=== PATIENT | female | born 1995 | race Caucasian/White ===

== ENCOUNTER → 2017-10-07 19:58 | Observation (INO) ==
[2017-10-07 18:03] LABS: Amphetamine Screen,Urine Negative ng/mL (Cutoff=1000); Barbiturate Screen,Urine Negative ng/mL (Cutoff=200); Benzodiazepines Screen,Urine Negative ng/mL (Cutoff=200); Cannabinoid Screen,Urine Negative ng/mL (Cutoff = 50); Cocaine Screen,Urine Negative ng/mL (Cutoff= 300); Opiate Screen,Urine Negative ng/mL (Cutoff=300); Phencyclidine Screen,Urine Negative ng/mL (Cutoff=25)
--- NOTE | 2017-10-07 18:04 | OB/GYN Progress Note ---
Date of Encounter: 10/07/17 Time of Encounter: 18:03 - Assessment and Plan (1) 22 weeks gestation of Current Visit: Yes Status: Acute (2) Vaginal discharge during in second trimester Current Visit: Yes Status: Acute FHR via doppler - 130's Speculum exam - No blood visualized Vaginosis panel - negative Discharge home with precautions given Subjective - Subjective Principal diagnosis: vaginal bleeding Interval history: Ms. Thorne presents with c/o small amount of dark brown discharge on toilet paper after first void of the morning. She also reports mild cramping. She states she has not had any further discharge today but the cramping has continued. She reports a slight increase in clear discharge and vulvar itching. Objective - Vital Signs Vital Signs: Intake and Output 10/07/17 10/07/17 10/07/17 07:59 15:59 23:59 Other: Weight 119.2 kg Patient Weight 10/07/17 23:59 Weight 119.2 kg - Exam FHR: auscultation normal FHR comments: FHR 145 Auscultation: bilateral: normal Abdomen: Present: normal appearance, soft, gravid Uterus: Present: normal, firm
[2017-10-07 18:22] LABS: Bacteria,Urine None Seen per hpf (None-Few); Hyaline Casts,Urine None Seen per lpf (None-Few); Ketones,Urine 15 mg/dL (Negative); PH,Urine 6.5 pH Units (5.0-8.0); RBC,Urine 0-3 per hpf (0-3); Specific Gravity,Urine 1.012 (1.010-1.025); Squamous Epithelial Cell,Urine Many per lpf (None-Few); Urobilinogen,Urine Normal (Normal); WBC,Urine 0-3 per hpf (0-3)
[2017-10-07 18:23] LABS: Bilirubin,Urine Negative (Negative); Blood,Urine Negative (Negative); Clarity,Urine Cloudy (Clear); Color,Urine Yellow (Yellow); Glucose,Urine (UA) Normal (Normal); Nitrite,Urine Negative (Negative); Protein,Urine Negative (Neg-Trace)
[2017-10-07 18:24] LABS: Leukocyte Esterase,Urine Trace (Negative)
[2017-10-07 19:26] LABS: Candida DNA Not Detected (Not Detect); Gardnerella DNA Not Detected (Not Detect); Trichomonas DNA Not Detected (Not Detect)
== END | disposition home or self-care (01) ==
LOC: 1NENULAB
PROVIDERS: ADMIT Advanced Practice Midwife; ATTEND Advanced Practice Midwife

== ENCOUNTER → 2017-11-16 12:25 | Observation (INO) ==
[2017-11-16 10:53] LABS: Bilirubin,Urine Negative (Negative); Blood,Urine Negative (Negative); Clarity,Urine Cloudy (Clear); Color,Urine Yellow (Yellow); Glucose,Urine (UA) Normal (Normal); Ketones,Urine Negative (Negative); Leukocyte Esterase,Urine Trace (Negative); Nitrite,Urine Negative (Negative); PH,Urine 6.5 pH Units (5.0-8.0); Protein,Urine Negative (Neg-Trace); Specific Gravity,Urine 1.005 (1.010-1.025); Urobilinogen,Urine Normal (Normal)
[2017-11-16 10:55] LABS: Bacteria,Urine Few per hpf (None-Few); Hyaline Casts,Urine None Seen per lpf (None-Few); RBC,Urine 0-3 per hpf (0-3); Squamous Epithelial Cell,Urine Many per lpf (None-Few)
[2017-11-16 12:16] LABS: Amphetamine Screen,Urine Negative ng/mL (Cutoff=1000); Barbiturate Screen,Urine Negative ng/mL (Cutoff=200); Benzodiazepines Screen,Urine Negative ng/mL (Cutoff=200); Cannabinoid Screen,Urine Negative ng/mL (Cutoff = 50); Cocaine Screen,Urine Negative ng/mL (Cutoff= 300); Opiate Screen,Urine Negative ng/mL (Cutoff=300); Phencyclidine Screen,Urine Negative ng/mL (Cutoff=25)
--- NOTE | 2017-11-16 12:19 | OB/GYN Progress Note ---
Date of Encounter: 11/16/17 Time of Encounter: 12:17 - Assessment and Plan (1) 27 weeks gestation of Current Visit: Yes Status: Acute Follow-up with Dr. Baltazar labor precautions given Discharge home (2) Low back pain during in second trimester Current Visit: Yes Status: Acute Advised she may use heating pad for low back pain 20 minutes at a time every hour Referral for chriopractic care given Use Maternity support belt as advised Subjective - Subjective Principal diagnosis: Common aches of Interval history: Ms. Carreno is a 22-year-old female who presents with complaints of left-sided lower back pain left upper quadrant pain and vaginal pain when she is trying to walk for the past week or so. She denies contractions, leakage of fluid, vaginal bleeding and endorses positive movement. Her primary OB is Dr. Baltazar. She states she has not seen him since the middle of September. Antepartum ROS: new complaints, movement normal, other (low back pain), no loss of fluid, no vaginal bleeding, no contractions Objective - Vital Signs Vital Signs: Intake and Output 11/15/17 11/16/17 11/16/17 23:59 07:59 15:59 Other: Weight 123 kg Patient Weight 11/16/17 23:59 Weight 123 kg - Exam FHR: category 2 FHR comments: Baseline 140 Moderate variability Accelerations present 10x10 Decelerations present - variable FHR Category II Auscultation: bilateral: normal Abdomen: Present: normal appearance, soft, gravid Uterus: Present: normal, firm Comments: No CVA tenderness; no urinary symptoms. - Labs Labs: Abnormal lab results Urine Clarity Cloudy (Clear) A 11/16/17 10:41 Ur Specific [place] 1.005 (1.010-1.025) L 11/16/17 10:41 Ur Leukocyte Esterase Trace (Negative) H 11/16/17 10:41 Urine Microscopic WBC 5-15 per hpf (0-3) H 11/16/17 10:41 Ur Squamous Epith Cells Many per lpf (None-Few) H 11/16/17 10:41 Ur Culture Indicated? NO. (NO) A 11/16/17 10:41
== END | disposition home or self-care (01) ==
LOC: 1NENULAB
PROVIDERS: ADMIT Obstetrics & Gynecology; ATTEND Obstetrics & Gynecology

== ENCOUNTER 2018-02-03 04:00 | Inpatient (IN) ==
[2018-02-03] MEDS ORDERED: Naloxone 0.4 MG/ML INJ IVP PRN ×3 (04:35→10:05)
[2018-02-03] MEDS ORDERED: Ondansetron 4 MG/2 ML VIAL IVP PRN ×3 (04:35→10:05)
[2018-02-03] MEDS ORDERED: Famotidine 20 MG/2 ML VIAL IVP PRN (04:35)
[2018-02-03] MEDS ORDERED: *HR* Nalbuphine 10 MG/ML AMPUL IVP PRN (04:35)
[2018-02-03] MEDS ORDERED: Metoclopramide 10 MG/2 ML VIAL IVP PRN (04:35)
[2018-02-03] MEDS ORDERED: Oxytocin 20 units/ LR 1000 mL 20 UNIT/1,000 ML BAG IVC SCH ×2 (04:45→20:03)
[2018-02-03] MEDS ORDERED: Ringers Solution, Lactated 1,000 ML ONE ×3 (04:59→12:11)
[2018-02-03 05:29] LABS: Basophils % 0.3 %; Eosinophils # 0.2 K/mcL (0.0-0.6); Eosinophils % 1.5 %; Hematocrit 35.2 % (35.3-44.9); Hemoglobin 11.2 g/dL (11.5-15.4); Lymphocytes # 2.6 K/mcL (0.6-4.6); Lymphocytes % 18.2 %; Mean Corpuscular HGB Conc 31.8 g/dL (31.6-35.5); Mean Corpuscular Hemoglobin 25.6 pg (28.0-33.3); Mean Corpuscular Volume 80.5 fL (83.0-100.0); Mean Platelet Volume 9.5 fL (9.4-12.4); Monocytes # 0.9 K/mcL (0.0-1.3); Monocytes % 6.5 %; Neutrophils # 10.4 K/mcL (1.6-8.9); Nucleated Red Blood Cells 0.1 /100 WBC (0); Platelet Count 258 K/mcL (140-400); Red Blood Count 4.37 M/mcL (3.82-4.97); Red Cell Distribution Width 15.5 % (11.5-14.5); Segmented Neutrophils % 72.5 %
--- NOTE | 2018-02-03 07:54 | OB/GYN History & Physical ---
Date of Encounter: 02/03/18 Time of Encounter: 07:52 Assessment and Plan (1) 39 weeks gestation of Current visit: Yes Status: Acute Induction with Pitocin. (2) 35 weeks gestation of Current visit: No Status: Acute History of Present Illness Chief complaint: induction of labor HPI: Ms. Thorne is a 22 year old female who presents today for induction of labor. She is currently 39+ weeks. She is doing well. She is having no complaints of any kind today. On presentation she is 3 cm 70% effaced and -1 station. She has a due date of February 09. She has no drug allergies. She is currently on vitamins. Chronic medical conditions include asthma. Surgical history is negative. She has no history of abnormal Pap smears, STDs or pelvic infections. She has no history of abnormal breast findings. Socially she denies tobacco, alcohol, illicit drug use. Family history significant for hypercholesterolemia and diabetes. Obstetric history is significant for one term vaginal delivery. Father of baby has Dangelo-Parkinson- White syndrome. Past Med Surg Social Fam HX - Past Medical History Medical history: asthma Psychiatric history: anxiety - Past Surgical History Surgical History: other Additional surgical history: T & A - Social History Smoking Status: Never smoker Smokeless Tobacco Status: No Alcohol use: none Drug use: none - Family History Mother Adopted: No Family Member Ethnicity: Non- Living Status: Hx Family Cardiac Disorders: Yes () Hx Family Respiratory Disorders: No Hx Family Cancer: No Hx Family GI Disorders: No Hx Family Genitourinary Disorders: No Hx Family Endocrine Disorder: Yes Hx Family Musculoskeletal Disorders: No Hx Family Neuromuscular Disorders: No Hx Family Neurologic Disorders: No Hx Family HEENT Disorders: No Hx Family Autoimmune Disorders: No Hx Family Reproductive Disorders: No Hx Family Psychosocial Disorders: No Hx Family Medical Disorders: No Obstetrical History - Pregnancies : 3 Para: 1 Term: 1 Ab's: 1 Livin Medications and Allergies Nrg999/Iron Fumarate/FA/Dss [ 19 Tablet] 1 tab PO DAILY 10/07/17 [ History] 3 Allergy/AdvReac Type Severity Reaction Status Date / Time No Known Allergies Allergy Verified 11/16/17 10:28 Review of System OB All systems PM: reviewed and no additional remarkable complaints except as stated Exam - Constitutional Constitutional: well developed, well nourished, no acute distress, average body habitus - HEENT HEENT: PERRL - Neck Neck exam: full ROM - Lungs Respiratory exam: CTAB - Cardiovascular Cardiovascular exam: RRR - Abdomen Abdomen: Present: bowel sounds normal, gravid, non tender - Extremities Extremities exam: full ROM, normal inspection - Vagina Vagina: Present: normal moisture - Cervix Dilation: 3 Effacement: 50 Station: -3 Results Result Diagrams: 02/03/18 04:40 Abnormal lab results WBC 14.4 K/mcL (4.3-11.1) H 02/03/18 04:40 Hgb 11.2 g/dL (11.5-15.4) L 02/03/18 04:40 Hct 35.2 % (35.3-44.9) L 02/03/18 04:40 MCV 80.5 fL (83.0-100.0) L 02/03/18 04:40 MCH 25.6 pg (28.0-33.3) L 02/03/18 04:40 RDW 15.5 % (11.5-14.5) H 02/03/18 04:40 Neutrophils # 10.4 K/mcL (1.6-8.9) H 02/03/18 04:40 Nucleated RBCs/100 WBC 0.1 /100 WBC (0) H 02/03/18 04:40 All other labs normal. - VTE Reasons for not Prescribing Prophylaxis: Treatment not Indicated - Low risk for VTE
[2018-02-03] MEDS ORDERED: Bupivacaine-MPF 0.25% 10 ML VIAL EP ONE ×2 (08:10→10:05)
[2018-02-03] MEDS ORDERED: EPHEDrine 50 MG/ML VIAL IVP PRN ×2 (08:10→10:05)
[2018-02-03] MEDS ORDERED: *HR* FentaNYL (PF) 100 MCG/2 ML VIAL EP ONE (08:10)
--- NOTE | 2018-02-03 08:14 | Anesthesia Evaluation PreOp ---
Date of Encounter: 02/03/18 Time of Encounter: 08:12 - Past History Planned Operation: CAITIE Cardiac History: Denies any Significant Hx Pulmonary History: Asthma CRANE MANAGER History: Denies Any Significant HX Other Medical History: Denies Any Significant HX, Other (obesity) Anesthesia History: No Prior Anesthetic Complications, Past Anesthesia ( tonsillectomy) : Yes Alcohol Use: none Drug use: none Medications and Allergies Mco131/Iron Fumarate/FA/Dss [ 19 Tablet] 1 tab PO DAILY 10/07/17 [ History] 3 Allergy/AdvReac Type Severity Reaction Status Date / Time No Known Allergies Allergy Verified 11/16/17 10:28 - Meds/Allergy Pre-op Review Medications Reviewed: Yes Allergies Reviewed: Yes Beta Blockers on Current Med List: No Anesthesia Results - Labs 02/03/18 04:40 Anesthesia Exam BP 122/69 P 85 R 16 T 97.6 Height: 5'5" Weight: 111.6kg NPO (# of Hours): 12 solids Pain Scale: 3 Pain Scale Used: Numeric (1 - 10) - HEENT Pupil (Motor): Pupils equal Mallampati: II Teeth: Normal Oral Opening: Greater than 3 - CRANE MANAGER LOC: Oriented CRANE MANAGER Motor: Normal RUE, Normal LUE, Normal RLE, Normal LLE, Normal Face CRANE MANAGER Sensory: Normal: RUE, LUE, RLE, LLE, Face - Cardiac Rhythm: Regular Murmur: None JVD: No Carotid Bruit: No - Pulmonary Breath Sounds: bilateral Clear Respiratory Effort: Symmetrical Anesthesia Assess/Plan ASA Score: 2 Modified [place] Scale for Level of Consciousness: Cooperative, oriented, and tranquil Anesthetic Plan: Regional Autologous Blood: Yes Monitoring Plan: Standard Monitors Recovery Plan: Other
[2018-02-03] MEDS ORDERED: Epidural Premix (fent/bupiv) 110 ML EP SCH ×2 (08:15→10:15)
[2018-02-03] MEDS ORDERED: *HR* FentaNYL (PF) 100 MCG/2 ML VIAL ONE (08:20)
[2018-02-03] MEDS ORDERED: Bupivacaine-MPF 0.25% 10 ML VIAL ONE (08:21)
[2018-02-03] MEDS ORDERED: Lidocaine -MPF 1% 5 ML AMPUL ONE (08:22)
[2018-02-03 08:50] LABS: Amphetamine Screen,Urine Negative ng/mL (Cutoff=1000); Barbiturate Screen,Urine Negative ng/mL (Cutoff=200); Benzodiazepines Screen,Urine Negative ng/mL (Cutoff=200); Cannabinoid Screen,Urine Negative ng/mL (Cutoff = 50); Cocaine Screen,Urine Negative ng/mL (Cutoff= 300); Opiate Screen,Urine Negative ng/mL (Cutoff=300); Phencyclidine Screen,Urine Negative ng/mL (Cutoff=25)
--- NOTE | 2018-02-03 09:52 | Anesthesia Procedures ---
Date of Encounter: 02/03/18 Time of Encounter: 09:10 Procedures: Anesthesia - Epidural/Spinal Patient ID/Chart reviewed: Yes Patient examined: Yes OB Eval: Gestational age: 39 OB Eval: : 2 OB Eval: Hx Para: 1 OB Eval: Dilated at (cm): 5 OB Eval: Contractions: Non-stressed pattern Consent Obtained: Yes Supplemental Oxygen: None/Room Air Site Prep: Aseptic Technique, Sterile prep and drape, Povidone-Iodine 1% Patient position: upright Local Anesthetic: Lidocaine 1% Amount of Local Anesthetic used: 3 Touhy Needle Gauge: 18 Touhy Needle Depth (cm): 6 Catheter Depth at Skin (cm): 15 Test Dose (1.5% Lido + Epi): Volume given (mls): 3 Test Dose Result: Negative Loading Dose: 0.25% Marcaine (mls): 10 Loading Dose: Fentanyl (mcg): 100 Loading Dose Administered: Thru Catheter Infusion Med: 0.125% Bupivacaine w/ 2 mcg/ml Fentanyl Infusion Rate (mls/hr): 15 Interspace Used: L4-L5 Loss of Resistance (LOUANN): Yes Blood: No CSF: No Paresthesia: No Procedure: CAITIE placed 1st pass in upright position without any immediate noted complications. VSS and FHT stable throughout. Vitals + FHT's: 0910 BP 108/57 P 89 R 18 0944 BP 107/54 P 78 R 16 FHT 130s
[2018-02-03] MEDS ORDERED: Ringers Solution, Lactated 1,000 ML IVC SCH (12:15)
--- NOTE | 2018-02-03 16:17 | OB/GYN Progress Note ---
Date of Encounter: 02/03/18 Time of Encounter: 16:15 - Assessment and Plan (1) 39 weeks gestation of Current Visit: Yes Status: Acute Induction with Pitocin. (2) 35 weeks gestation of Current Visit: No Status: Acute Subjective - Subjective Principal diagnosis: induction Interval history: 22-year-old female scheduled for induction of labor at 39+ weeks. Patient been on Pitocin all day. heart rate in the 120s to 140s with accelerations. Contractions irregular. Currently on 14 milliunits of Pitocin. Cervical exam she is 4/70 and -2 station. Artificial rupture membranes performed. Patient with polyhydramnios. Clear fluid. IUPC placed. Antepartum ROS: new complaints, movement normal, contractions Objective - Vital Signs Vital Signs: Intake and Output 02/03/18 02/03/18 02/03/18 07:59 15:59 23:59 Other: Weight 111.6 kg Patient Weight 02/03/18 23:59 Weight 111.6 kg - Exam FHR: category 1 Abdomen: Present: normal appearance Uterus: Present: normal Cervical dilation: 4cm/70/-2 Cervix effacement: 70 station: -2 - Labs Labs: Abnormal lab results WBC 14.4 K/mcL (4.3-11.1) H 02/03/18 04:40 Hgb 11.2 g/dL (11.5-15.4) L 02/03/18 04:40 Hct 35.2 % (35.3-44.9) L 02/03/18 04:40 MCV 80.5 fL (83.0-100.0) L 02/03/18 04:40 MCH 25.6 pg (28.0-33.3) L 02/03/18 04:40 RDW 15.5 % (11.5-14.5) H 02/03/18 04:40 Neutrophils # 10.4 K/mcL (1.6-8.9) H 02/03/18 04:40 Nucleated RBCs/100 WBC 0.1 /100 WBC (0) H 02/03/18 04:40
--- NOTE | 2018-02-03 17:57 | OB/GYN Procedure Note ---
Delivery - Delivery Date: 02/03/18 Provider: James Figueroa Intrapartum events: none Delivery induction: oxytocin Delivery augmentation: rupture of membranes, pitocin Delivery monitor: external FHT, external uterine, internal FHT Anesthesia: epidural Quantitated Blood Loss: 200 - Infant (s) Infant A Infant Delivery Date: 02/03/18 Infant Delivery Time: 17:56 Presentation: vertex Position: ELINA Route of delivery: Gender: Male Viability: Viable Pounds: 8 Ounces: 7 Weight Gram: 3.815 kg at 1 minute: 9 at 5 mins: 10 Shoulder Dystocia Maneuvers: Ruben maneuver, suprapubic pressure Shoulder dystocia time elapsed: 5 sec Placenta: spontaneous - Repair Episiotomy: none Laceration Description: Perineal - 1st Degree - Complications Delivery complications: none - Disposition Mom disposition: stable in LDR disposition: stable in LDR - Comments Comments: Patient is a 22-year-old female who presents for induction of labor. This patient progressed rapidly once artificial rupture membranes was performed. She had a spontaneous vaginal delivery of a male over an intact perineum. Infant's head was in the perineum easily. There was a mild shoulder dystocia which was reduced with Hernandez maneuver and suprapubic pressure. The shoulder dystocia lasted less than 5 seconds. The rest the residual difficulty. The cried immediately upon delivery cord was clamped cut after 60 seconds. Cord blood was not obtained as patient is a positive. Placenta was delivered spontaneously intact. There are no cervical, vaginal or periurethral lacerations noted. There was a first-degree perineal laceration repaired with 3 marked suture and 1 interrupted stitch. Patient delivered a male 8 lbs. 7 oz. with 9 and 10 Apgars estimated blood loss is 200 mL.
[2018-02-03] MEDS ORDERED: Measles/Mumps/Rubella Vacc 0.5 ML VIAL SQ PRN (20:03)
[2018-02-03] MEDS ORDERED: Acetaminophen 325 MG TABLET PO PRN (20:03)
[2018-02-03] MEDS: Ibuprofen 600 MG TABLET PO PRN (20:29)
[2018-02-04 07:01] LABS: Basophils % 0.3 %; Eosinophils # 0.3 K/mcL (0.0-0.6); Eosinophils % 1.8 %; Hemoglobin 10.2 g/dL (11.5-15.4); Lymphocytes # 2.9 K/mcL (0.6-4.6); Lymphocytes % 20.5 %; Mean Corpuscular HGB Conc 31.9 g/dL (31.6-35.5); Mean Corpuscular Hemoglobin 25.7 pg (28.0-33.3); Mean Corpuscular Volume 80.6 fL (83.0-100.0); Mean Platelet Volume 10.1 fL (9.4-12.4); Monocytes # 0.8 K/mcL (0.0-1.3); Monocytes % 5.9 %; Platelet Count 226 K/mcL (140-400); Red Blood Count 3.97 M/mcL (3.82-4.97); Red Cell Distribution Width 15.3 % (11.5-14.5); Segmented Neutrophils % 70.5 %
[2018-02-04] MEDS ORDERED: Prenatal Vit/FA 1 EACH TABLET PO SCH (09:00)
[2018-02-04] MEDS: Ibuprofen 600 MG TABLET PO PRN (09:50)
[2018-02-04 16:56] VITALS: BP 134/76
--- NOTE | 2018-02-04 17:32 | OB/GYN Progress Note ---
Date of Encounter: 02/04/18 Time of Encounter: 17:31 - Assessment and Plan (1) 39 weeks gestation of Current Visit: Yes Status: Acute Induction with Pitocin. (2) 35 weeks gestation of Current Visit: No Status: Acute Subjective - Subjective Principal diagnosis: s/p Interval history: 22-year-old female scheduled for induction of labor. This patient progressed to complete and pushing and had a spontaneous vaginal delivery of a male . Uncomplicated delivery with 9,10 Apgars for baby. 200 mL blood loss. Patient reports: appetite normal, pain well controlled, ambulating normally [place]: doing well Objective - Latest Vital Signs Latest vital signs: Vital Signs Temp Pulse Resp BP Pulse Ox 02/04/18 16:51 98.1 F 85 16 134/76 02/04/18 09:58 16 02/04/18 08:39 99.0 F 97 18 116/73 96 02/04/18 04:00 97.8 F 74 16 105/64 98 02/03/18 22:39 97.8 F 66 16 113/76 98 02/03/18 21:30 98.1 F 77 16 122/74 98 02/03/18 20:25 98.2 F 71 16 114/69 97 Intake and Output 02/04/18 02/04/18 02/04/18 07:59 15:59 23:59 Intake Total 800 / 800 Output Total 1200 / 1200 1300 / 1300 1100 / 1100 Balance -400 / -400 -1300 / -1300 -1100 / -1100 Intake: Oral 800 / 800 Output: Urine 1200 / 1200 1300 / 1300 1100 / 1100 Other: Weight 121.245 kg Patient Weight 02/04/18 23:59 Weight 121.245 kg - Exam Extremities: Present: normal Abdomen: Present: normal appearance, soft Uterus: Present: normal - Labs Labs: Laboratory Results - last 24 hr 02/04/18 06:46 WBC 14.2 H RBC 3.97 Hgb 10.2 L Hct 32.0 L MCV 80.6 L MCH 25.7 L MCHC 31.9 RDW 15.3 H Plt Count 226 MPV 10.1 Immature Gran % 1.0 Seg Neutrophils % 70.5 Lymphocytes % 20.5 Monocytes % 5.9 Eosinophils % 1.8 Basophils % 0.3 Neutrophils # 10.0 H Lymphocytes # 2.9 Monocytes # 0.8 Eosinophils # 0.3 Basophils # 0.0
--- NOTE | 2018-02-04 17:35 | Discharge Summary ---
Date of Encounter: 02/04/18 Time of Encounter: 17:34 - Discharge Diagnosis (1) 39 weeks gestation of Priority: Primary Status: Acute Comments: 22-year-old female scheduled for induction of labor. Patient progressed complete and pushing at a spontaneous vaginal delivery of a male uncomplicated delivery. Baby cried upon delivery. Apgars were 9 at 1 minute and 10 at 5 minutes. Blood loss 200 mL. patient is not wonderfully with no complaints. Wishes to go home day 1. Baby has been discharged by Peds. (2) Term of male Priority: Secondary Status: Acute - Discharge Medications Home Medications: Wcj865/Iron Fumarate/FA/Dss [ 19 Tablet] 1 tab PO DAILY 10/07/17 [ History] Allergies/Adverse Reactions: 3 Allergy/AdvReac Type Severity Reaction Status Date / Time No Known Allergies Allergy Verified 11/16/17 10:28 Data Procedures and tests throughout hospitalization: Laboratory Tests 02/03/18 02/03/18 02/04/18 04:40 04:40 06:46 WBC 14.4 H 14.2 H RBC 4.37 3.97 Hgb 11.2 L 10.2 L Hct 35.2 L 32.0 L MCV 80.5 L 80.6 L MCH 25.6 L 25.7 L MCHC 31.8 31.9 RDW 15.5 H 15.3 H Plt Count 258 226 MPV 9.5 10.1 Immature Gran % 1.0 1.0 Seg Neutrophils % 72.5 70.5 Lymphocytes % 18.2 20.5 Monocytes % 6.5 5.9 Eosinophils % 1.5 1.8 Basophils % 0.3 0.3 Neutrophils # 10.4 H 10.0 H Lymphocytes # 2.6 2.9 Monocytes # 0.9 0.8 Eosinophils # 0.2 0.3 Basophils # 0.0 0.0 Nucleated RBCs/100 WBC 0.1 H Urine Opiates Screen Negative Ur Barbiturates Screen Negative Ur Phencyclidine Scrn Negative Ur Amphetamines Screen Negative U Benzodiazepines Scrn Negative Urine Cocaine Screen Negative U Marijuana (THC) Screen Negative Ur Drug Screen Interp See Below Labs on day of discharge: Labs from last 24 hours 02/04/18 06:46 WBC 14.2 H RBC 3.97 Hgb 10.2 L Hct 32.0 L MCV 80.6 L MCH 25.7 L MCHC 31.9 RDW 15.3 H Plt Count 226 MPV 10.1 Immature Gran % 1.0 Seg Neutrophils % 70.5 Lymphocytes % 20.5 Monocytes % 5.9 Eosinophils % 1.8 Basophils % 0.3 Neutrophils # 10.0 H Lymphocytes # 2.9 Monocytes # 0.8 Eosinophils # 0.3 Basophils # 0.0 Date of admission: 02/03/18 04:10 Primary care physician: Sreekanth Gomez Consults: 02/03/18 20:03 Consult to Heating And Air Conditioning Mechanic [CONS] Routine Comment: Vaginal delivery, consult needed Discharging clinician: James Figueroa Anticipated date of discharge: 02/04/18 - Patient Status Disposition: Home, Self-Care Condition: Good Functional capacity at discharge: independent ambulation Overall status at discharge: patient is back to baseline - Discharge Instructions Follow Up With: Sreekanth Gomez MD [Primary Care Provider] - Hospital Course EDUCATION INTERN Time Attestation: Total time spent providing and/or coordinating discharge services: Exam - Constitutional Vitals: Temp Pulse Resp BP Pulse Ox 98.1 F 85 16 134/76 96 02/04/18 16:51 02/04/18 16:51 02/04/18 16:51 02/04/18 16:51 02/04/18 08:39 General appearance IM: A&O X 3 - Respiratory Respiratory exam: Present: CTAB - Cardiovascular Cardiovascular exam IM: Present: RRR - Rectal Rectal exam: deferred - Uterus Position: 3 Fingers Below Umbilicus - Extremities Exam Extremities exam IM: Present: full ROM - Neurological Exam Neurological exam: reflexes normal - VTE Reasons for not Prescribing Prophylaxis: Treatment not Indicated - Low risk for VTE
== END 2018-02-04 18:30 | disposition home or self-care (01) | DRG 560 ==
LOC: 1NENULAB 04:10 → 1NENUOBS 21:11
PROVIDERS: ADMIT Obstetrics & Gynecology; ATTEND Obstetrics & Gynecology

== ENCOUNTER → 2019-08-11 13:35 | Observation (INO) ==
[2019-08-11 14:33] LABS: Candida DNA Not Detected (Not Detect); Gardnerella DNA Not Detected (Not Detect); Trichomonas DNA Not Detected (Not Detect)
== END | disposition home or self-care (01) ==
LOC: 1NENULAB
PROVIDERS: ADMIT Advanced Practice Midwife; ATTEND Advanced Practice Midwife

== ENCOUNTER → 2019-11-09 13:30 | Observation (INO) ==
[2019-11-09 12:37] LABS: Bilirubin,Urine Negative (Negative); Blood,Urine Negative (Negative); Clarity,Urine Clear (Clear); Color,Urine Yellow (Yellow); Glucose,Urine (UA) Normal (Normal); Ketones,Urine Negative (Negative); Leukocyte Esterase,Urine Negative (Negative); Nitrite,Urine Negative (Negative); PH,Urine 6.5 pH Units (5.0-8.0); Protein,Urine Negative (Neg-Trace); Specific Gravity,Urine 1.014 (1.010-1.025); Urobilinogen,Urine Normal (Normal)
[2019-11-09 12:39] LABS: Basophils % 0.3 %; Eosinophils # 0.1 K/mcL (0.0-0.6); Eosinophils % 0.6 %; Hematocrit 33.6 % (35.3-44.9); Hemoglobin 10.3 g/dL (11.5-15.4); Immature Granulocytes % 1.4 % (0-4); Lymphocytes # 2.2 K/mcL (0.6-4.6); Lymphocytes % 13.9 %; Mean Corpuscular HGB Conc 30.7 g/dL (31.6-35.5); Mean Corpuscular Hemoglobin 25.1 pg (28.0-33.3); Mean Corpuscular Volume 81.8 fL (83.0-100.0); Mean Platelet Volume 9.6 fL (9.4-12.4); Monocytes # 0.6 K/mcL (0.0-1.3); Monocytes % 3.9 %; Neutrophils # 12.7 K/mcL (1.6-8.9); Nucleated Red Blood Cells 0.1 /100 WBC (0); Platelet Count 286 K/mcL (140-400); Red Blood Count 4.11 M/mcL (3.82-4.97); Red Cell Distribution Width 15.4 % (11.5-14.5); Segmented Neutrophils % 79.9 %; White Blood Count 15.9 K/mcL (4.3-11.1)
[~2019-11-09 13:30] MED LIST: Ondansetron 4 MG/2 ML VIAL IVP ONE
== END | disposition home or self-care (01) ==
LOC: 1NENULAB
PROVIDERS: ADMIT Obstetrics & Gynecology; ATTEND Obstetrics & Gynecology

== ENCOUNTER 2019-12-17 08:00 | Inpatient (IN) ==
[2019-12-17] MEDS ORDERED: Ondansetron 4 MG/2 ML VIAL IVP PRN (09:07)
[2019-12-17] MEDS ORDERED: Famotidine 20 MG/2 ML VIAL IVP PRN (09:07)
[2019-12-17] MEDS ORDERED: Metoclopramide 10 MG/2 ML VIAL IVP PRN (09:07)
[2019-12-17] MEDS ORDERED: Naloxone 0.4 MG/ML INJ IVP PRN (09:07)
[2019-12-17] MEDS ORDERED: *HR* FentaNYL (PF) 100 MCG/2 ML VIAL IVP PRN (09:07)
[2019-12-17 09:28] LABS: Basophils # 0.1 K/mcL (0.0-0.2); Basophils % 0.5 %; Eosinophils # 0.3 K/mcL (0.0-0.6); Eosinophils % 2.4 %; Hematocrit 34.3 % (35.3-44.9); Hemoglobin 10.5 g/dL (11.5-15.4); Immature Granulocytes % 1.3 % (0-4); Lymphocytes # 2.7 K/mcL (0.6-4.6); Lymphocytes % 18.6 %; Mean Corpuscular HGB Conc 30.6 g/dL (31.6-35.5); Mean Corpuscular Hemoglobin 24.1 pg (28.0-33.3); Mean Corpuscular Volume 78.9 fL (83.0-100.0); Mean Platelet Volume 9.7 fL (9.4-12.4); Monocytes # 0.7 K/mcL (0.0-1.3); Monocytes % 5.2 %; Neutrophils # 10.3 K/mcL (1.6-8.9); Nucleated Red Blood Cells 0.2 /100 WBC (0); Platelet Count 297 K/mcL (140-400); Red Blood Count 4.35 M/mcL (3.82-4.97); Red Cell Distribution Width 15.9 % (11.5-14.5); White Blood Count 14.3 K/mcL (4.3-11.1)
[2019-12-17 09:30] LABS: Amphetamine Screen,Urine Negative ng/mL (Cutoff=1000); Barbiturate Screen,Urine Negative ng/mL (Cutoff=200); Benzodiazepines Screen,Urine Negative ng/mL (Cutoff=200); Cannabinoid Screen,Urine Negative ng/mL (Cutoff = 50); Cocaine Screen,Urine Negative ng/mL (Cutoff= 300); Opiate Screen,Urine Negative ng/mL (Cutoff=300); Phencyclidine Screen,Urine Negative ng/mL (Cutoff=25)
[2019-12-17] MEDS ORDERED: Oxytocin 20 units/ LR 1000 mL 20 UNIT/1,000 ML BAG IVC SCH ×2 (09:30→17:56)
[2019-12-17] MEDS: Ringers Solution, Lactated 1,000 ML IVC SCH ×2 (10:08→13:31)
[2019-12-17] MEDS ORDERED: *HR* FentaNYL (PF) 100 MCG/2 ML VIAL EP ONE (10:29)
[2019-12-17] MEDS ORDERED: Bupivacaine-MPF 0.25% 10 ML VIAL EP ONE (10:29)
[2019-12-17] MEDS ORDERED: EPHEDrine 50 MG/ML VIAL IVP PRN (10:29)
[2019-12-17] MEDS ORDERED: Epidural Premix (fent/bupiv) 110 ML EP SCH (10:30)
[2019-12-17] MEDS ORDERED: Bupivacaine-MPF 0.25% 10 ML VIAL ONE (10:34)
[2019-12-17] MEDS ORDERED: *HR* FentaNYL (PF) 100 MCG/2 ML VIAL ONE (10:34)
[2019-12-17] MEDS ORDERED: Measles/Mumps/Rubella Vacc 0.5 ML VIAL SQ PRN (17:56)
[2019-12-17] MEDS: Acetaminophen 325 MG TABLET PO PRN (20:19)
[2019-12-18] MEDS: Acetaminophen 325 MG TABLET PO PRN (04:42)
[2019-12-18 06:36] LABS: Basophils # 0.1 K/mcL (0.0-0.2); Basophils % 0.4 %; Eosinophils # 0.4 K/mcL (0.0-0.6); Eosinophils % 2.3 %; Hematocrit 32.8 % (35.3-44.9); Hemoglobin 10.1 g/dL (11.5-15.4); Immature Granulocytes % 1.3 % (0-4); Lymphocytes # 3.2 K/mcL (0.6-4.6); Lymphocytes % 19.3 %; Mean Corpuscular HGB Conc 30.8 g/dL (31.6-35.5); Mean Corpuscular Hemoglobin 24.4 pg (28.0-33.3); Mean Corpuscular Volume 79.2 fL (83.0-100.0); Mean Platelet Volume 9.9 fL (9.4-12.4); Monocytes % 6.2 %; Neutrophils # 11.8 K/mcL (1.6-8.9); Platelet Count 248 K/mcL (140-400); Red Blood Count 4.14 M/mcL (3.82-4.97); Red Cell Distribution Width 16.2 % (11.5-14.5); Segmented Neutrophils % 70.5 %; White Blood Count 16.7 K/mcL (4.3-11.1)
[2019-12-18 07:52] VITALS: BP 122/78
[2019-12-18] MEDS ORDERED: Prenatal Vit/FA 1 EACH TABLET PO SCH (09:00)
== END 2019-12-18 16:00 | disposition home or self-care (01) | DRG 560 ==
LOC: 1NENULAB 08:09 → 1NENUOBS 17:27
PROVIDERS: ADMIT Obstetrics & Gynecology; ATTEND Obstetrics & Gynecology